=== PATIENT | male | born 1990 | race Hispanic/Latino ===

== ENCOUNTER 2018-04-02 13:01 | Emergency (ER) | payer OTHER ==
[~2018-04-02] VITALS: Ht 180.3 cm; Wt 90.7 kg
[2018-04-02] MEDS ORDERED: PERCOCET 5-3251 EACH PO (13:25)
[2018-04-02] MEDS ORDERED: BACTRIM DS TAB1 EACH PO (15:01)
== END 2018-04-02 15:21 | disposition home or self-care (01) ==
LOC: ED 13:01 → EDSEX 13:02 → ED 15:21
DX: N39.0 Urinary tract infection, site not specified (principal); F17.200 Nicotine dependence, unspecified, uncomplicated; Z79.899 Other long term (current) drug therapy
CPT/HCPCS: 81001; 87077; 87088; 87186; 99283

== ENCOUNTER 2018-06-15 15:33 | Inpatient (IN) | payer OTHER ==
[~2018-06-15] VITALS: Ht 180.3 cm; Wt 88.8 kg
[~2018-06-15 15:33] MED LIST: BACTRIM DS TAB1 EACH PO; PERCOCET 5-3251 EACH PO
--- NOTE | 2018-06-15 19:36 | NUR ---
Report received. Patient arrived via stretcher. Ambulated to the bed. Officer at bedside, restraints in place.
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
--- NOTE | 2018-06-15 22:00 | NUR ---
IV TYLENOL AVAILABLE FROM [employer] SALESP[employer]. ADMINISTERED PER ORDER, IV PIGGYBACK OVER 15MINS. IV FLUIDS INFUSING PER ORDER, BOLUS FROM ED FINISHED. PATIENT REPORTS 9/10 PAIN. EDUCATED PATIENT ON USE OF THIS MED TO REDUCE ABD PAIN. IV FLUSHES WITH SOME RESISTANCE, APPEARS WNL. PATIENT REQUESTING FOOD, JELLO AND WATER PROVIDED.
--- NOTE | 2018-06-15 22:50 | NUR ---
PATIENT REQUESTING FOOD. ASKED FOR ICE CREAM, A SANDWICH, OR OTHER SOLID FOODS. DISCUSSED CLEAR LIQUIDS DIET WITH PATIENT AGAIN. JELLO AND CHICKEN BROTH PROVIDED.
--- NOTE | 2018-06-15 23:15 | NUR ---
PATIENT REQUESTING FOOD. "MY STOMACH IS LIKE GROWLING AND STUFF". EDUCATION SHEET WITH AVAILABLE FOODS PROVIDED TO PATIENT. HE REQUEST A POPCICLE AND 7UP. WHICH WERE PROVIDED. PATIENT DENIES NAUSE. PAIN APPEARS TO BE WELL CONTROLLED, PATIENT RATES IT 7/10 WHEN ASKED. DRAINAGE IN COLOSTOMY BAG INCREASED WITH SOME GAS, RELEASED GAS FROM BAG. PATIENT DENIES OTHER NEEDS.
--- NOTE | 2018-06-16 00:30 | NUR ---
RECURRENT DISTAL OCCLUSIONS IN PATIENT'S IV IN THE LEFT AC. ATTEMPTS TO REDRESS AND FLUSH WERE UNSUCESSFUL. NEW IV PLACED IN LEFT FOREARM. IV FLUIDS PER ORDER. PATIENT REPORTS PAIN 10/10 IN LLQ, DISCUSSED PAIN GOALS WITH PATIENT AND HE REPORTS HIS PAIN 8/10. IV MORPHINE PROVIDED, 2MG. PATIENT DENIES OTHER NEEDS. ENCOURAGED HIM TO SLEEP. EHSAN AT BEDSIDE.
--- NOTE | 2018-06-16 01:30 | NUR ---
PATIENT'S COLOSTOMY BURST WHILE HE WAS MOVING AROUND IN BED. MEDIUM BOWEL MOVEMENT NOTED. NO BLOOD VISIBLE, NO OCCULT BLOOD TEST PERFORMED. BM WAS SEMIFORMED, BROWN IN COLOR WITH UNDIGESTED FOOD VISIBLE. PATIENT UP TO THE SHOWER, NEW LINENS APPLIED. FRESH OSTOMY DRESSING APPLIED. DRESSING REMOVED APPEARED SMALL FOR THE SIZE OF THE OSTOMY, SLIGHTLY LARGER DRESSING NOW IN PLACE. PATIENT VS DONE, WNL. REPORTS PAIN 6/10. MOVES EASILY AND IS REQUESTING SNACKS AND DRINKS. IV FLUIDS PER ORDER, NEW SITE WNL. GAURD AT BEDSIDE. 4 POINT RESTRAINTS. NO OTHER NEEDS AT THIS TIME.
--- NOTE | 2018-06-16 02:18 | NUR ---
VITALS DONE AND CHARTED. WARM BLANKET GIVEN. FRESH WATER GIVEN TO SECURITY. BEDSIDE TABLE AND CALL LIGHT WITHIN REACH. PT NEEDS NOTHING ELSE AT THIS TIME.
--- NOTE | 2018-06-16 05:46 | NUR ---
PATIENT SLEPT MINIMAL AMOUNT DURING SHIFT. NO NAUSEA, TOLERATED CLEAR LIQUIDS WITH MANY SNACKS. PAIN IN LLQ, CONSTANT 8-10/10 PAIN. MEDIUM BM, WNL. COLOSTOMY DRESSING CHANGED LAST NIGHT. IV FLUIDS PER ORDER. SCDS. SBA. GAURD & 4 POINT RESTRAINTS. IV TYLENOL, PRN MORPHINE X1.
--- NOTE | 2018-06-16 05:55 | NUR ---
PT ADMITTED TO THE FLOOR R/T ABD. PAIN AND DEHYDRATION. PT ARRIVED AT 1936. OFFICER AT BEDSIDE, RESTRAINTS IN PLACE. VS STABLE THROUGHOUT NIGHT. PT C/O 06/02 ABD. PAIN LOCATED AROUND OSTOMY SITE. PT RECIEVED IV APAP Q6 FOR PAIN. WELL IV MORPHINE PRN PAIN. NEW 22G IV PLACED IN LEFT FOREARM. D5 LR RUNNING AT 125 MLS/HR. NEW OSTOMY DRESSING/BAG APPLIED. PT ON CLEAR DIET. PT STEADY ON FEET. 1 PERSON SBA.
--- NOTE | 2018-06-16 08:06 | NUR ---
RN IN ROOM WITH PATIENT AT THIS TIME.
--- NOTE | 2018-06-16 08:14 | NUR ---
PT LAYING IN BED, DROWSY, BUT ALERT WHEN AROUSED WITH VERBAL STIMULI. PT ORIENTED TO PERSON, PLACE, YEAR, BUT NOT MONTH. [facility] DEPUTY AT PT'S BEDSIDE. PT HAS PERSONAL SUPPLIES AND CALL LIGHT IN REACH. PT C/O 06/02 PAIN TO LLQ, GAVE MORPHINE 2 MG IV PRN. PT ATE JELLO, DECLINED FURTHER PO INTAKE AT THIS TIME. DENIED OTHER NEEDS. PERSONAL SUPPLIES AND CALL LIGHT IN REACH.
--- NOTE | 2018-06-16 09:27 | NUR ---
PT IN BED, SLEEPING SOUNDLY, OFFICER AT BEDSIDE. PERSONAL SUPPLIES AND CALL LIGHT IN REACH.
--- NOTE | 2018-06-16 11:25 | NUR ---
PT SLEEPING SOUNDLY, GAURD AT BEDSIDE. NO S/S DISTRESS OR DISCOMFORT.
--- NOTE | 2018-06-16 13:35 | NUR ---
MED REC COMPLETE
--- NOTE | 2018-06-16 14:07 | NUR ---
PATIENT STATED HE DID NOT URINATE OR FEEL THE NEED TO TRY TO URINATE AT THIS TIME.
--- NOTE | 2018-06-16 14:14 | NUR ---
DR. CACERES IN TO SEE PT. ASSESSED PT, DISCUSSED PLANS FOR PROBABLE DISCHARGE TODAY. STATED THAT PT MAY EAT REGULAR DIET. ORDERED PT A REGULAR DIET MEAL: CHEESE BURGER, SLOVENIAN FRIES, AND A COLA PER PT REQUEST.
--- NOTE | 2018-06-16 14:39 | NUR ---
PATIENT RESTING IN BED, GUARD IN ROOM. RESTRAINTS IN PLACE. NO OTHER NEEDS AT THIS TIME.
[2018-06-16] MEDS ORDERED: TYLENOL325 MG PO ×2 (15:15)
--- NOTE | 2018-06-16 17:22 | NUR ---
THIS RN ATTEMPTED TO CALL [facility] DIRECT LINE AT [phone], WITH NO ANSWER, JUST A BUSY SIGNAL X 6 ATTEMPTS. ALSO ATTEMPTED TO CALL THE [facility] DIRECT LINE, WITH NO ANSWER, SO UNABLE TO GIVE REPORT TO [facility] NURSING STAFF. THE [facility]S DEPUTY THAT WAS WITH PT WAS IN ROOM WHEN THIS RN GAVE VERBAL DISCHARGE INSTRUCTIONS TO PT, AND THE DEPUTY WAS GIVEN THE PRINTED INSTRUCTIONS. PT'S QUESTIONS ASKED AND ANSWERED, PT VERBALIZED UNDERSTANDING. IV D/C'D WNL. PT STATED THAT HE KNEW THE PURPOSE OF HIS DISCHARGE MEDICATION, ACETAMINOPHEN FOR PAIN, AND SIDE EFFECTS TO WATCH FOR.
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
== END 2018-06-16 16:33 | disposition home or self-care (01) | DRG 395 ==
LOC: ED 15:33 → MS 18:31
PROVIDERS: ADMIT Surgery
DX: K94.01 Colostomy hemorrhage (principal); R10.30 Lower abdominal pain, unspecified; E86.0 Dehydration; F17.200 Nicotine dependence, unspecified, uncomplicated; Z87.828 Personal history of other (healed) physical injury and trauma
CPT/HCPCS: 36415; 74018; 74177; 80053; 81001; 83605; 83690; 85025; 96361; 96374; 99284; J0131; J2270; J2405; J7030; J7120; Q9967

== ENCOUNTER 2018-06-17 11:50 | Emergency (ER) | payer OTHER ==
[~2018-06-17] VITALS: Ht 180.3 cm; Wt 88.8 kg
[~2018-06-17 11:50] MED LIST changes: +TYLENOL325 MG PO
== END 2018-06-17 14:00 | disposition home or self-care (01) ==
LOC: ED 11:50
DX: K94.09 Other complications of colostomy (principal)
CPT/HCPCS: 36415; 74022; 80053; 83605; 85025; 86850; 86900; 86901; 99283

== ENCOUNTER 2019-03-16 19:49 | Emergency (ER) | payer SELFPAY ==
[~2019-03-16] VITALS: Ht 180.3 cm; Wt 88.5 kg
[~2019-03-16 19:49] MED LIST changes: +ENULOSE10 GM/15 M PO
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
== END 2019-03-16 23:35 | disposition home or self-care (01) ==
LOC: ED 19:49
DX: S30.1XXA Contusion of abdominal wall, initial encounter (principal); F17.200 Nicotine dependence, unspecified, uncomplicated; W01.0XXA Fall on same level from slipping, tripping and stumbling without subsequent striking against object, initial encounter
CPT/HCPCS: 74177; 80053; 85025; 85610; 85730; 86850; 86900; 86901; 99284-25

== ENCOUNTER 2019-07-19 16:08 | Emergency (ER) | payer MEDICAID ==
[~2019-07-19] VITALS: Ht 180.3 cm; Wt 90.7 kg
--- OUTSIDE RECORDS SUMMARY | 2019-07-19 16:10 | XMS ---
PreManage Notification: ROCIO RETANA Security Materials Intern Events No recent Security Events currently on file CRITERIA MET - Group Notification - [facility] - Has Care Guidelines CARE PROVIDERS Wyatt Moran- Mold Mechanic [facility] [employer] PHONE: [phone] [facility] [place] Current PHONE: Unknown Grace has no Care Guidelines for this patient. Care History Medical/Surgical 08/15/2018 [facility] - [facility] IS UNABLE TO CONTACT PATIENT- RECEIVED ED PHYSICIAN ORDER- HELP PATIENT FIND PCP. - PHONE NUMBER LISTED IS THE [facility] CONTACT NUMBER AND THEY DO NOT HAVE A CONTACT NUMBER ON FILE. - IF PATIENT IS SEEN IN THE ED AGAIN PLEASE CONTACT [facility] [phone] IF DURING BUSINESS HOURS. - IF [facility] IS UNAVAILABLE PLEASE HAVE PATIENT APPLY FOR MEDICAL BENEFITS AND ASK FOR A CONTACT NUMBER AND OR ADDRESS. E.D. VISIT COUNT (12 MO.) [address] [place] [address] ADRIA Romero TOTAL 7 NOTE: Visits indicate total known visits. ED/UCC VISIT TRACKING (12 MO.) 07/19/2019 16:08 [facility] [place] TYPE: Emergency COMPLAINT: - COLOSTOMY BAG ISSUE 03/16/2019 19:49 [facility] [place] TYPE: Emergency COMPLAINT: - RUPTURED COLOSTAMY BAG DIAGNOSES: - Contusion of abdominal wall, initial encounter - Fall on same level from slipping, tripping and stumbling without subsequent striking against object, initial encounter - Nausea with vomiting, unspecified - Nicotine dependence, unspecified, uncomplicated 12/10/2018 14:29 [employer] [facility] [place] TYPE: Emergency DIAGNOSES: - Poisoning by heroin, undetermined, initial encounter - OD 12/02/2018 08:21 [facility] TYPE: Emergency DIAGNOSES: - Fall - Parastomal hernia without obstruction or gangrene 08/31/2018 09:05 [employer] [place] TYPE: Emergency DIAGNOSES: - Left lower quadrant pain - HARDENING AROUND COLOSTOMY AREA 08/24/2018 15:54 [employer] [facility] [place] TYPE: Emergency COMPLAINT: - OD 08/11/2018 10:[address] [facility] [place] TYPE: Emergency COMPLAINT: - COLOSTOMY BAG ISSUES DIAGNOSES: - Nicotine dependence, unspecified, uncomplicated - Constipation, unspecified INPATIENT VISIT TRACKING (12 MO.) No inpatient visits to display in this time frame [email or web address]
== END 2019-07-19 22:01 | disposition home or self-care (01) ==
LOC: ED 16:08
DX: K94.01 Colostomy hemorrhage (principal); Z87.891 Personal history of nicotine dependence
CPT/HCPCS: 74177; 80053; 83690; 85025; 99285-25; Q9967

== ENCOUNTER 2020-05-11 06:26 | Emergency (ER) | payer OTHER ==
[~2020-05-11] VITALS: Ht 172.7 cm; Wt 86.2 kg
--- OUTSIDE RECORDS SUMMARY | 2020-05-11 06:28 | XMS ---
PreManage Notification: ROCIO RETNAA Security Reimbursement Spec Events No recent Security Events currently on file CRITERIA MET - Group Notification CARE PROVIDERS Dean Wyatt Community Health Worker 01/01/2020-Current PHONE: [phone] Grace has no Care Guidelines for this patient. Care History Medical/Surgical 08/15/2018 [facility] - [facility] IS UNABLE TO CONTACT PATIENT- RECEIVED ED PHYSICIAN ORDER- HELP PATIENT FIND PCP. - PHONE NUMBER LISTED IS THE [employer] CONTACT NUMBER AND THEY DO NOT HAVE A CONTACT NUMBER ON FILE. - IF PATIENT IS SEEN IN THE ED AGAIN PLEASE CONTACT W [phone] IF DURING BUSINESS HOURS. - IF [facility] IS UNAVAILABLE PLEASE HAVE PATIENT APPLY FOR MEDICAL BENEFITS AND ASK FOR A CONTACT NUMBER AND OR ADDRESS. E.D. VISIT COUNT (12 MO.) [address] TOTAL 4 NOTE: Visits indicate total known visits. ED/UCC VISIT TRACKING (12 MO.) 05/11/2020 06:26 [facility] [place] TYPE: Emergency COMPLAINT: - COLOSTOMY BAG PROBLEM 12/28/2019 02:26 [facility] DIAGNOSES: - SOB - Poisoning by other synthetic narcotics, accidental (unintenti 09/01/2019 14:51 [facility] [place] TYPE: Emergency DIAGNOSES: - GENERAL - Gastrojejunal ulcer, unspecified as acute or chronic, without 07/19/2019 16:08 [facility] [place] TYPE: Emergency COMPLAINT: - COLOSTOMY BAG ISSUE DIAGNOSES: - Unspecified abdominal pain - Colostomy hemorrhage - Personal history of nicotine dependence INPATIENT VISIT TRACKING (12 MO.) No inpatient visits to display in this time frame [email or web address]
== END 2020-05-11 07:02 | disposition home or self-care (01) ==
LOC: ED 06:26
DX: S30.811A Abrasion of abdominal wall, initial encounter (principal); F17.200 Nicotine dependence, unspecified, uncomplicated; Z88.5 Allergy status to narcotic agent; W01.0XXA Fall on same level from slipping, tripping and stumbling without subsequent striking against object, initial encounter
CPT/HCPCS: 99282

== ENCOUNTER 2020-05-25 18:32 | Emergency (ER) | payer OTHER ==
[~2020-05-25] VITALS: Ht 172.7 cm; Wt 86.2 kg
--- OUTSIDE RECORDS SUMMARY | 2020-05-25 18:34 | XMS ---
PreManage Notification: ROCIO RETANA Security Seismology Technical Officer Events No recent Security Events currently on file CRITERIA MET - Group Notification - [facility] - 2 Visits in 30 Days CARE PROVIDERS Wyatt Moran Community Health Worker 01/01/2020-Current PHONE: [phone] Grace has no Care Guidelines for this patient. Care History Medical/Surgical 08/15/2018 [facility]NA[facility] TO CONTACT PATIENT- RECEIVED ED PHYSICIAN ORDER- HELP PATIENT FIND PCP. - PHONE NUMBER LISTED IS THE [employer] CONTACT NUMBER AND THEY DO NOT HAVE A CONTACT NUMBER ON FILE. - IF PATIENT IS SEEN IN THE ED AGAIN PLEASE CONTACT W [phone] IF DURING BUSINESS HOURS. - IF [facility] IS UNAVAILABLE PLEASE HAVE PATIENT APPLY FOR MEDICAL BENEFITS AND ASK FOR A CONTACT NUMBER AND OR ADDRESS. E.D. VISIT COUNT (12 MO.) 2 [facility] TOTAL 5 NOTE: Visits indicate total known visits. ED/UCC VISIT TRACKING (12 MO.) 05/25/2020 18:33 [facility] [place] TYPE: Emergency COMPLAINT: - ABDOMINAL PAIN 05/11/2020 06:26 [facility] [place] TYPE: Emergency COMPLAINT: - COLOSTOMY BAG PROBLEM DIAGNOSES: - Nicotine dependence, unspecified, uncomplicated - Colostomy complication, unspecified - Allergy status to narcotic agent status - Fall on same level from slipping, tripping and stumbling with - Abrasion of abdominal wall, initial encounter 12/28/2019 02:26 [facility] [place] TYPE: Emergency DIAGNOSES: - SOB - Poisoning by other synthetic narcotics, accidental (unintenti 09/01/2019 14:51 [facility] [place] TYPE: Emergency DIAGNOSES: - GENERAL - Gastrojejunal ulcer, unspecified as acute or chronic, without 07/19/2019 16:08 [facility] [place] TYPE: Emergency COMPLAINT: - COLOSTOMY BAG ISSUE DIAGNOSES: - Unspecified abdominal pain - Colostomy hemorrhage - Personal history of nicotine dependence INPATIENT VISIT TRACKING (12 MO.) No inpatient visits to display in this time frame [email or web address]
== END 2020-05-25 20:10 | disposition home or self-care (01) ==
LOC: ED 18:32
DX: K94.09 Other complications of colostomy (principal); F17.200 Nicotine dependence, unspecified, uncomplicated; Z88.5 Allergy status to narcotic agent
CPT/HCPCS: 99283

== ENCOUNTER 2020-12-21 22:24 | Emergency (ER) | payer OTHER ==
[~2020-12-21] VITALS: Ht 172.7 cm; Wt 86.2 kg
--- OUTSIDE RECORDS SUMMARY | 2020-12-21 22:26 | XMS ---
PreManage Notification: ROCIO RETANA Security Building Performance Specialist Events 1 event(s) in the past 18 months Most recent security events: Elopement at [facility] 05/25/2020 18:33 - Patient eloped with IV in place. Details: PATIENT LEFT AMA. CRITERIA MET - Group Notification CARE PROVIDERS PEDRO XIE Community Health Worker 01/01/2020-Current PHONE: [phone] Grace has no Care Guidelines for this patient. Care History Medical/Surgical 08/15/2018 [facility] - [facility] IS UNABLE TO CONTACT PATIENT- RECEIVED ED PHYSICIAN ORDER- HELP PATIENT FIND PCP. - PHONE NUMBER LISTED IS THE [employer] CONTACT NUMBER AND THEY DO NOT HAVE A CONTACT NUMBER ON FILE. - IF PATIENT IS SEEN IN THE ED AGAIN PLEASE CONTACT W [phone] IF DURING BUSINESS HOURS. - IF W IS UNAVAILABLE PLEASE HAVE PATIENT APPLY FOR MEDICAL BENEFITS AND ASK FOR A CONTACT NUMBER AND OR ADDRESS. E.D. VISIT COUNT (12 MO.) 3 [facility] NOTE: Visits indicate total known visits. ED/UCC VISIT TRACKING (12 MO.) 12/21/2020 22:25 [facility] [place] [facility] [place] TYPE: Emergency COMPLAINT: - STOMA IS BLEEDING 11/15/2020 08:17 [facility] [place] TYPE: Emergency DIAGNOSES: - Other specified counseling - ABD PAIN 07/15/2020 12:45 [facility] [place] TYPE: Emergency DIAGNOSES: - Clostomy bag - Other complications of colostomy - Colostomy bag 05/25/2020 18:33 [facility] [place] TYPE: Emergency COMPLAINT: - ABDOMINAL PAIN DIAGNOSES: - Other complications of colostomy - Nicotine dependence, unspecified, uncomplicated - Allergy status to narcotic agent 05/11/2020 06:26 [facility] [place] TYPE: Emergency COMPLAINT: - COLOSTOMY BAG PROBLEM DIAGNOSES: - Nicotine dependence, unspecified, uncomplicated - Colostomy complication, unspecified - Allergy status to narcotic agent - Fall on same level from slipping, tripping and stumbling without subsequent striking against object, initial encounter - Abrasion of abdominal wall, initial encounter 12/28/2019 02:26 [facility] [place] TYPE: Emergency DIAGNOSES: - SOB - Poisoning by other synthetic narcotics, accidental (unintentional), initial encounter INPATIENT VISIT TRACKING (12 MO.) No inpatient visits to display in this time frame [email or web address]
== END 2020-12-21 23:39 | disposition home or self-care (01) ==
LOC: ED 22:24
DX: K94.01 Colostomy hemorrhage (principal); Z87.891 Personal history of nicotine dependence; Z88.5 Allergy status to narcotic agent
CPT/HCPCS: 99283